=== PATIENT | female | born 1940 | race Caucasian/White ===

== ENCOUNTER → 2024-01-22 | Outpatient (CLI) | payer MEDICARE ==
[2024-01-22 11:45] LABS: African American GFR (CKD) 90 (>60 ml/min/1.73 sqM); Blood Urea Nitrogen 11 mg/dL (7-17); Non-African American GFR(CKD) 78 (>60 ml/min/1.73 sqM)
--- NOTE | 2024-01-22 12:51 | CT ---
EXAMINATION TYPE: CT angio neck CT DLP: 246.10 mGycm, Automated exposure control for dose reduction was used. DATE OF EXAM: 01/22/2024 12:16 PM COMPARISON: None. 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 TECHNIQUE: Axially acquired helical CT angiogram of the neck was obtained with contrast utilizing 75 cc of Isovue-[id number] administered intravenously. Axial images are supplemented with 3D reconstructions wh ich were post-processed at an independent workstation. NASCET criteria used. FINDINGS: CTA NECK: Right Carotid System: The common carotid artery and external carotid artery are patent. The carotid bifurcation demonstrate s no evidence of hemodynamically significant stenosis. The remaining portions of the internal carotid artery demonstrate normal size without significant narrowing. Left Carotid System: The common carotid artery and external carotid artery are patent. The carotid bifurcation demonstrate s no evidence of hemodynamically significant stenosis. The remaining portions of the internal carotid artery demonstrate normal size without significant narrowing. Vertebral arteries are patent without evidence hemodynamically significant stenosis. There is a three-vessel aortic arch. The origins of the great vessels are patent. No evidence of hemo dynamically significant stenosis. Reversal of the normal cervical lordosis. Grade 1 anterolisthesis of C2 on C3. Multilevel degenerativ e disc disease. IMPRESSION: No evidence of dissection of the cervical internal carotid arteries or vertebral arteries or any evid ence of significant stenosis at the carotid bifurcations. [facility], , 01/22/2024 12:49 PM
== END | disposition home or self-care (01) ==
LOC: RADCTMAIN 11:06
PROVIDERS: ATTEND Psychiatry & Neurology Neurology
CPT/HCPCS: 36415; 70498; 82565; 84520

== ENCOUNTER → 2024-10-06 | Outpatient (CLI) | payer MEDICARE ==
[2024-10-06 12:44] LABS: Basophils # (A) 0.02 10*3/uL (0.00-0.10); Basophils % (A) 0.3 %; Eosinophils # (A) 0.28 10*3/uL (0.04-0.35); Eosinophils % (A) 4.8 %; HCT 43.4 % (37.2-46.3); HGB 14.5 g/dL (12.0-15.0); Lymphocytes # (A) 1.22 10*3/uL (0.90-5.00); Lymphocytes % (A) 21.1 %; MCH 30.7 pg (27.0-32.0); MCHC 33.4 g/dL (32.0-37.0); MCV 91.9 fL (80.0-97.0); Monocytes # (A) 0.49 10*3/uL (0.20-1.00); Monocytes % (A) 8.5 %; Neutrophils # (A) 3.75 10*3/uL (1.80-7.70); Neutrophils % (A) 65.0 %; Platelet Count 237 10*3/uL (140-440); RBC 4.72 10*6/uL (4.10-5.20); RDW 12.7 % (11.5-14.5); WBC 5.78 10*3/uL (4.50-10.00)
[2024-10-06 15:45] LABS: Anion Gap 17.20 mmol/L (4.00-12.00); BUN/Creat Ratio 14.57 Ratio (12.00-20.00); Blood Urea Nitrogen 10.2 mg/dL (9.0-27.0); Calcium 9.6 mg/dL (8.7-10.3); Carbon Dioxide 22.8 mmol/L (21.6-31.8); Chloride 106 mmol/L (96-109); Cholesterol 247.00 mg/dL (0.00-200.00); Glucose 94 mg/dL (70-110); HDL Cholesterol 46.80 mg/dL (40.00-60.00); LDL Cholesterol,Calculated 173.4 mg/dL (0.0-131.0); Potassium 4.3 mmol/L (3.5-5.5); Sodium 146 mmol/L (135-145); Total Protein 6.8 g/dL (6.2-8.2); Triglycerides 134.00 mg/dL (0.00-149.00); VLDL Calculation 26.80 mg/dL (5.00-40.00)
[2024-10-06 15:46] LABS: ALT 23 U/L (8-44); AST 22 U/L (13-35); Albumin 4.4 g/dL (3.8-4.9); Albumin/Globulin Ratio 1.83 Ratio (1.60-3.17); Alkaline Phosphatase 76 U/L (41-126); Globulin 2.4 g/dL (1.6-3.3); Vitamin B12 718.0 pg/mL (200.0-944.0)
[2024-10-07 13:52] LABS: Lyme IgG/IgM .210
== END | disposition home or self-care (01) ==
LOC: LABWHC1 11:35
PROVIDERS: ATTEND Physician Assistant Medical
DX: D72.819 Decreased white blood cell count, unspecified (principal); R42 Dizziness and giddiness; W57.XXXA Bitten or stung by nonvenomous insect and other nonvenomous arthropods, initial encounter
CPT/HCPCS: 36415; 80053; 80061; 82306; 82607; 82746; 83036; 84443; 85025; 86618